=== PATIENT | male | born 1980 | race Caucasian/White ===

== ENCOUNTER 2018-10-26 14:22 | Outpatient (CLI) ==
--- NOTE | 2018-10-26 15:20 | CT ---
EXAM: CT abdomen pelvis without contra HISTORY: Flank pain, stone protocol COMPARISON: None TECHNIQUE: CT abdomen pelvis performed with intravenous contrast. Coronal and sagittal reformatted images obtained FINDINGS: Lung bases clear. No free air. No acute abnormalities of the bones. Degenerative change in the spine. Heart normal in size. Evaluation organ parenchyma limited without contrast. Liver u nremarkable. Gallbladder unremarkable. Pancreas unremarkable. Spleen unremarkable. Adrenals unrem arkable. No hydronephrosis or nephrolithiasis. No calculi visualized in the normal course of the ur eters. Bladder only mildly distended and poorly evaluated, grossly unremarkable. Prostate normal in size. No lymphadenopathy or ascites. Stomach unremarkable. No dilated loops small bowel. Colon u nremarkable. Small fat-containing periumbilical hernia. No lymphadenopathy or ascites. No inflammat ory stranding identified in the abdomen pelvis. IMPRESSION: 1. No hydronephrosis or nephrolithiasis. 2. No acute abnormality identified in the abdomen pelvis.
== END 2018-10-26 14:23 | disposition home or self-care (01) ==
LOC: RAD 14:22
PROVIDERS: ATTEND Family Medicine
DX: R10.9 Unspecified abdominal pain (principal)